=== PATIENT | male | born 1960 | race Caucasian/White ===

== ENCOUNTER → 2016-06-27 | Outpatient (CLI) | payer SELFPAY ==
[~2016-06-27] MED LIST: K-TAB20 PO; LASIX 20MG TABL20 MG PO
[2016-06-27 11:16] LABS: HEMATOCRIT 42.3 % (42.0-52.0); HEMOGLOBIN 14.1 g/dl (13.5-18.0); MEAN CELL VOLUME 88 fl (80.0-100.0); MEAN CORPUSCULAR HEMOGLOBIN 29 pg (27.0-31.0); MEAN CORPUSCULAR HGB CONC 33 g/dl (33.0-37.0); MEAN PLATELET VOLUME 11.8 fl (7.4-10.4); PLATELET COUNT 157 K/mm3 (130-400); RED BLOOD COUNT 4.81 M/mm3 (4.20-5.60); REDCELL DISTRIBUTION WIDTH-CV 13.5 % (11.5-14.5); WHITE BLOOD COUNT 4.3 K/mm3 (4.8-10.8)
[2016-06-27 11:24] LABS: ADJUSTED CALCIUM 8.9 mg/dL (8.4-10.2); ALBUMIN 4.3 gm/dL (3.5-5.0); BILIRUBIN,TOTAL 0.9 mg/dL (0.0-1.0); CALCIUM 9.1 mg/dL (8.4-10.2); CREATININE, serum 0.77 mg/dL (0.66-1.25); TOTAL PROTEIN 7.2 gm/dL (6.4-8.2)
== END ==
LOC: ZLAB.FHCC 10:24 → COL.LAB 10:24
DX: Z02.89 Encounter for other administrative examinations (principal)

== ENCOUNTER 2018-10-27 22:13 | Emergency (ER) | payer BC ==
[2018-10-27 22:19] VITALS: TEMP 98.2
[2018-10-27 23:16] LABS: HEMATOCRIT 44.3 % (42.0-52.0); HEMOGLOBIN 14.9 g/dl (13.5-18.0); MEAN CELL VOLUME 88 fl (80.0-100.0); MEAN CORPUSCULAR HEMOGLOBIN 30 pg (27.0-31.0); MEAN CORPUSCULAR HGB CONC 34 g/dl (33.0-37.0); MEAN PLATELET VOLUME 10.1 fl (7.4-10.4); PLATELET COUNT 238 K/mm3 (130-400); RED BLOOD COUNT 5.03 M/mm3 (4.20-5.60); REDCELL DISTRIBUTION WIDTH-CV 14.1 % (11.5-14.5)
[2018-10-27 23:38] LABS: ALANINE AMINOTRANSFERASE 37 U/L (21-72); ALBUMIN 5.2 gm/dL (3.5-5.0); ALKALINE PHOSPHATASE 70 U/L (50-136); ANION GAP 21 mmol/L (7-16); AST,SGOT 67 U/L (15-37); BILIRUBIN,TOTAL 1.1 mg/dL (0.0-1.0); BLOOD UREA NITROGEN 8 mg/dL (9-20); CALCIUM 9.1 mg/dL (8.4-10.2); CARBON DIOXIDE 17 mmol/L (22-30); CHLORIDE 100 mmol/L (98-107); CREATININE, serum 0.72 (0.66-1.25); GLUCOSE 183 mg/dL (74-106); MAGNESIUM 1.7 mg/dL (1.6-2.3); PHOSPHOROUS 3.1 mg/dL (2.5-4.5); POTASSIUM 4.4 mmol/L (3.4-5.0); SODIUM 138 mmol/L (137-145); TOTAL PROTEIN 8.9 gm/dL (6.4-8.2)
[2018-10-27 23:39] LABS: ACETAMINOPHEN < 10 ug/mL (10-30); ALCOHOL(ethanol),MEDICAL < 10 mg/dL; C-REACTIVE PROTEIN < 0.5 mg/dL (0.0-0.9); SALICYLATE < 1.0 mg/dL
[2018-10-27 23:48] LABS: COLLECTION METHOD CLEAN CATCH
[2018-10-27 23:49] LABS: BAND 7 % (0-10); LYMPHOCYTE 7 % (20.0-51.0); NEUTROPHILS 82 % (42.0-75.2); PLATELET ESTIMATE NORMAL (NORMAL)
[2018-10-27 23:53] LABS: TROPONIN-I < 0.012 ng/mL (0.000-0.035)
[2018-10-28 00:01] LABS: TRICYCLIC ANTIDEPRESS URINE NEGATIVE
[2018-10-28 00:05] LABS: MUCOUS Present /lpf; PH 5 (5-8); SQUAMOUS EPITHELIAL None Seen /hpf; URINE APPEARANCE Clear; URINE BACTERIA Rare /hpf; URINE BILIRUBIN Negative (NEGATIVE); URINE BLOOD 1+ (NEGATIVE); URINE COLOR Yellow; URINE GLUCOSE 1+ (NEGATIVE); URINE KETONE 2+ (NEGATIVE); URINE LEUKOCYTE ESTERASE Negative (NEGATIVE); URINE NITRATE Negative (NEGATIVE); URINE PROTEIN(semi-quant) 2+ (NEGATIVE); URINE RBC None Seen /hpf; URINE UROBILINOGEN Negative (NEGATIVE)
[2018-10-28 02:26] LABS: CALCIUM 8.1 mg/dL (8.4-10.2); CREATININE, serum 0.63 (0.66-1.25); POTASSIUM 4.1 mmol/L (3.4-5.0)
[2018-10-28] MEDS ORDERED: LIBRIUM 25M25 MG/CAP PO (06:54)
[2018-10-28 07:05] VITALS: BP 149/90; PULSE 88
== END 2018-10-28 07:05 | disposition home or self-care (01) ==
LOC: COL.ER 22:13
PROVIDERS: Emergency Medicine
DX: G47.00 Insomnia, unspecified (principal); F41.9 Anxiety disorder, unspecified; F19.939 Other psychoactive substance use, unspecified with withdrawal, unspecified
CPT/HCPCS: J2060; J2405; J3411; J7030

== ENCOUNTER 2018-12-01 00:40 | Emergency (ER) | payer BC ==
[~2018-12-01] VITALS: Ht 182.9 cm; Wt 90.5 kg
[~2018-12-01 00:40] MED LIST changes: +LIBRIUM 25M25 MG/CAP PO
[2018-12-01 00:52] VITALS: TEMP 98
[2018-12-01] MEDS ORDERED: LEXAPRO 10MG10 MG PO (00:56)
[2018-12-01 01:01] LABS: BASO % 0.1 % (0.0-2.0); EOS % 0.1 % (0-4.0); GRAN # 3.1 (1.4-6.5); GRAN % 43.5 % (42.2-75.2); HEMATOCRIT 48.4 % (42.0-52.0); HEMOGLOBIN 16.4 g/dl (13.5-18.0); LYMPH # 3.6 (1.2-3.4); LYMPH % 50.6 % (20.0-51.0); MEAN CELL VOLUME 85 fl (80.0-100.0); MEAN CORPUSCULAR HEMOGLOBIN 29 pg (27.0-31.0); MEAN CORPUSCULAR HGB CONC 34 g/dl (33.0-37.0); MONO # 0.4 (0.1-0.6); MONO % 5.4 % (1.7-9.3); PLATELET COUNT 249 K/mm3 (130-400); REDCELL DISTRIBUTION WIDTH-CV 12.8 % (11.5-14.5)
[2018-12-01 01:10] LABS: BILIRUBIN,TOTAL 0.4 mg/dL (0.0-1.0); CALCIUM 9.2 mg/dL (8.4-10.2); CREATININE, serum 0.82 (0.66-1.25); POTASSIUM 3.9 mmol/L (3.4-5.0); TOTAL PROTEIN 8.7 gm/dL (6.4-8.2)
[2018-12-01 02:26] LABS: COLLECTION METHOD CLEAN CATCH
[2018-12-01] MEDS ORDERED: ZOFRAN 4MG T4 MG/TAB PO (02:27)
[2018-12-01 02:33] LABS: MUCOUS Present /lpf; PH 5 (5-8); SQUAMOUS EPITHELIAL 0-2 /hpf; URINE APPEARANCE Hazy; URINE BACTERIA None Seen /hpf; URINE BILIRUBIN Negative (NEGATIVE); URINE BLOOD Negative (NEGATIVE); URINE COLOR Yellow; URINE GLUCOSE Negative (NEGATIVE); URINE KETONE Trace (NEGATIVE); URINE LEUKOCYTE ESTERASE Negative (NEGATIVE); URINE NITRATE Negative (NEGATIVE); URINE PROTEIN(semi-quant) 2+ (NEGATIVE); URINE RBC 0-2 /hpf; URINE UROBILINOGEN Negative (NEGATIVE); URINE WBC 0-2 /hpf
[2018-12-01 03:05] VITALS: BP 136/71; PULSE 97
== END 2018-12-01 03:07 | disposition home or self-care (01) ==
LOC: COL.ER 00:40
PROVIDERS: Emergency Medicine
DX: F10.129 Alcohol abuse with intoxication, unspecified (principal); R10.13 Epigastric pain; R11.2 Nausea with vomiting, unspecified; F32.9 Major depressive disorder, single episode, unspecified; Y90.7 Blood alcohol level of 200-239 mg/100 ml
CPT/HCPCS: J2270; J2405; J3411; J3475; J7030

== ENCOUNTER 2019-09-12 09:56 | Emergency (ER) | payer BC ==
[~2019-09-12] VITALS: Ht 185.4 cm; Wt 100.0 kg
[~2019-09-12 09:56] MED LIST changes: +LEXAPRO 10MG10 MG PO; +ZOFRAN 4MG T4 MG/TAB PO
[2019-09-12 10:04] VITALS: TEMP 98.2
[2019-09-12 10:41] LABS: BASO % 0.4 % (0.0-2.0); EOS % 0.3 % (0-4.0); GRAN # 4.3 (1.4-6.5); GRAN % 59.4 % (42.2-75.2); HEMATOCRIT 44.5 % (42.0-52.0); HEMOGLOBIN 14.9 g/dl (13.5-18.0); LYMPH # 2.4 (1.2-3.4); MEAN CELL VOLUME 89 fl (80.0-100.0); MEAN CORPUSCULAR HEMOGLOBIN 30 pg (27.0-31.0); MEAN CORPUSCULAR HGB CONC 34 g/dl (33.0-37.0); MEAN PLATELET VOLUME 10.6 fl (7.4-10.4); MONO # 0.5 (0.1-0.6); MONO % 6.6 % (1.7-9.3); PLATELET COUNT 206 K/mm3 (130-400); RED BLOOD COUNT 5.02 M/mm3 (4.20-5.60); REDCELL DISTRIBUTION WIDTH-CV 12.6 % (11.5-14.5)
[2019-09-12 11:00] LABS: TROPONIN-I 0.015 ng/mL (0.000-0.035)
[2019-09-12 11:18] LABS: ALANINE AMINOTRANSFERASE 37 U/L (4-49); ALBUMIN 4.9 gm/dL (3.5-5.0); ALKALINE PHOSPHATASE 84 U/L (50-136); ANION GAP 16 mmol/L (7-16); AST,SGOT 53 U/L (15-37); BILIRUBIN,TOTAL 0.8 mg/dL (0.0-1.0); BLOOD UREA NITROGEN 9 mg/dL (9-20); CALCIUM 9.4 mg/dL (8.4-10.2); CARBON DIOXIDE 18 mmol/L (22-30); CHLORIDE 103 mmol/L (98-107); CREATININE, serum 0.74 (0.66-1.25); GLUCOSE 93 mg/dL (74-106); LIPASE 72 U/L (23-300); POTASSIUM 4.2 mmol/L (3.4-5.0); SODIUM 138 mmol/L (137-145); TOTAL PROTEIN 8.8 gm/dL (6.4-8.2)
[2019-09-12 11:23] LABS: C-REACTIVE PROTEIN < 0.5 mg/dL (0.0-0.9)
[2019-09-12] MEDS ORDERED: TOPROL XL 50MG50 MG PO (13:42)
[2019-09-12 14:23] VITALS: BP 156/89; PULSE 75
== END 2019-09-12 14:25 | disposition home or self-care (01) ==
LOC: COL.ER 09:56
PROVIDERS: Physician Assistant
DX: R03.0 Elevated blood-pressure reading, without diagnosis of hypertension (principal); K29.20 Alcoholic gastritis without bleeding; F32.9 Major depressive disorder, single episode, unspecified
CPT/HCPCS: C9113; J2060; J7030

== ENCOUNTER 2020-05-26 22:00 | Emergency (ER) | payer SELFPAY ==
[~2020-05-26] VITALS: Ht 182.9 cm; Wt 90.9 kg
[~2020-05-26 22:00] MED LIST changes: +TOPROL XL 50MG50 MG PO
[2020-05-26 22:24] LABS: COLLECTION METHOD CLEAN CATCH
[2020-05-26 22:27] LABS: BASO % 0.4 % (0.0-2.0); HEMATOCRIT 42.4 % (42.0-52.0); HEMOGLOBIN 13.8 g/dl (13.5-18.0); LYMPH # 0.5 (1.2-3.4); LYMPH % 10.2 % (20.0-51.0); MEAN CELL VOLUME 93 fl (80.0-100.0); MEAN CORPUSCULAR HEMOGLOBIN 30 pg (27.0-31.0); MEAN CORPUSCULAR HGB CONC 33 g/dl (33.0-37.0); MONO # 0.3 (0.1-0.6); MONO % 5.2 % (1.7-9.3); PLATELET COUNT 199 K/mm3 (130-400); RED BLOOD COUNT 4.54 M/mm3 (4.20-5.60); REDCELL DISTRIBUTION WIDTH-CV 13.6 % (11.5-14.5)
[2020-05-26 22:35] LABS: MUCOUS Present /lpf; PH 5 (5-8); SQUAMOUS EPITHELIAL None Seen /hpf; URINE APPEARANCE Clear; URINE BACTERIA None Seen /hpf; URINE BILIRUBIN Negative (NEGATIVE); URINE BLOOD Negative (NEGATIVE); URINE COLOR Yellow; URINE GLUCOSE Negative (NEGATIVE); URINE KETONE 2+ (NEGATIVE); URINE LEUKOCYTE ESTERASE Negative (NEGATIVE); URINE NITRATE Negative (NEGATIVE); URINE PROTEIN(semi-quant) 2+ (NEGATIVE); URINE RBC 0-2 /hpf; URINE UROBILINOGEN Negative (NEGATIVE)
[2020-05-26 22:37] LABS: ALBUMIN 5.5 gm/dL (3.5-5.0); ALCOHOL(ethanol),MEDICAL 15 mg/dL; ALKALINE PHOSPHATASE 94 U/L (50-136); ANION GAP 30 mmol/L (7-16); AST,SGOT 119 U/L (15-37); BILIRUBIN,TOTAL 1.3 mg/dL (0.0-1.0); BLOOD UREA NITROGEN 5 mg/dL (9-20); CHLORIDE 97 mmol/L (98-107); CREATININE, serum 0.65 (0.66-1.25); GLUCOSE 138 mg/dL (74-106); LIPASE 103 U/L (23-300); POTASSIUM 4.2 mmol/L (3.4-5.0); SODIUM 136 mmol/L (137-145)
[2020-05-26 22:38] LABS: CARBON DIOXIDE 9 mmol/L (22-30); TRICYCLIC ANTIDEPRESS URINE NEGATIVE
[2020-05-26 22:43] LABS: ALANINE AMINOTRANSFERASE 75 U/L (4-49)
[2020-05-26 22:50] LABS: TROPONIN-I < 0.012 ng/mL (0.000-0.035)
[2020-05-26 23:07] LABS: PROTHROMBIN TIME 11.3 SECONDS (9.7-12.8)
[2020-05-26 23:10] LABS: PARTIAL THROMBOPLASTIN TIME 29.6 SECONDS (26.0-37.0)
[2020-05-27 01:07] LABS: CREATININE, serum 0.59 (0.66-1.25); POTASSIUM 4.3 mmol/L (3.4-5.0)
[2020-05-27 02:15] VITALS: BP 140/84; PULSE 109; TEMP 98.2
[2020-06-23] MEDS ORDERED: LEXAPRO 10MG10 MG PO (00:25)
[2020-06-23] MEDS ORDERED: PRINIVIL10 MG PO (00:26)
[2020-06-27] MEDS ORDERED: AMOXICILLIN 8751 TAB PO (08:14)
[2020-06-27] MEDS ORDERED: ZESTRIL 20MG TA20 MG PO (08:15)
[2020-06-27] MEDS ORDERED: DUO-KAPS1 CAP PO (08:15)
[2020-06-27] MEDS ORDERED: THIAMINE 1100 MG/TAB PO (08:15)
[2020-06-27] MEDS ORDERED: FOLIC ACID 11 MG/TA1 PO (08:15)
[2020-06-27] MEDS ORDERED: PROBIOTIC ACID1 EAC3 PO (09:10)
== END 2020-05-27 02:15 | disposition short-term general hospital (02) ==
LOC: COL.ER 22:00
PROVIDERS: Emergency Medicine
DX: F10.239 Alcohol dependence with withdrawal, unspecified (principal); E87.2 Acidosis; K85.90 Acute pancreatitis without necrosis or infection, unspecified; I10 Essential (primary) hypertension; Z20.822 Contact with and (suspected) exposure to COVID-19
CPT/HCPCS: J0456; J2060; J2250; J2543; J3360; J7030; J7042; J7050; Q9967

== ENCOUNTER 2020-07-17 21:10 | Emergency (ER) | payer SELFPAY ==
[~2020-07-17] VITALS: Ht 190.5 cm; Wt 90.9 kg
[~2020-07-17 21:10] MED LIST changes: +AMOXICILLIN 8751 TAB PO; +DUO-KAPS1 CAP PO; +FOLIC ACID 11 MG/TA1 PO; +PRINIVIL10 MG PO; +PROBIOTIC ACID1 EAC3 PO; +THIAMINE 1100 MG/TAB PO; +ZESTRIL 20MG TA20 MG PO
[2020-07-17 21:47] LABS: BASO % 0.2 % (0.0-2.0); GRAN # 4.1 (1.4-6.5); GRAN % 81.6 % (42.2-75.2); HEMATOCRIT 43.5 % (42.0-52.0); HEMOGLOBIN 14.5 g/dl (13.5-18.0); LYMPH # 0.6 (1.2-3.4); LYMPH % 12.6 % (20.0-51.0); MEAN CELL VOLUME 90 fl (80.0-100.0); MEAN CORPUSCULAR HEMOGLOBIN 30 pg (27.0-31.0); MEAN CORPUSCULAR HGB CONC 33 g/dl (33.0-37.0); MEAN PLATELET VOLUME 10.3 fl (7.4-10.4); MONO # 0.3 (0.1-0.6); MONO % 5.4 % (1.7-9.3); PLATELET COUNT 215 K/mm3 (130-400); RED BLOOD COUNT 4.81 M/mm3 (4.20-5.60); REDCELL DISTRIBUTION WIDTH-CV 12.7 % (11.5-14.5)
[2020-07-17 21:55] LABS: INR 1.1 (0.8-3.0); PROTHROMBIN TIME 12.1 SECONDS (9.7-12.8)
[2020-07-17 21:57] LABS: PARTIAL THROMBOPLASTIN TIME 28.2 SECONDS (26.0-37.0)
[2020-07-17 22:01] LABS: COLLECTION METHOD CLEAN CATCH
[2020-07-17 22:01] LABS: ALBUMIN 5.3 gm/dL (3.5-5.0); ALKALINE PHOSPHATASE 70 U/L (50-136); ANION GAP 25 mmol/L (7-16); AST,SGOT 66 U/L (15-37); BILIRUBIN,TOTAL 1.6 mg/dL (0.0-1.0); BLOOD UREA NITROGEN 9 mg/dL (9-20); CALCIUM 9.3 mg/dL (8.4-10.2); CHLORIDE 98 mmol/L (98-107); CREATINE KINASE 133 U/L (55-170); CREATININE, serum 0.65 (0.66-1.25); GLUCOSE 153 mg/dL (74-106); LIPASE 109 U/L (23-300); POTASSIUM 4.8 mmol/L (3.4-5.0); SODIUM 136 mmol/L (137-145); TOTAL PROTEIN 9.2 gm/dL (6.4-8.2)
[2020-07-17 22:05] LABS: ALCOHOL(ethanol),MEDICAL < 10 mg/dL; CARBON DIOXIDE 13 mmol/L (22-30)
[2020-07-17 22:07] LABS: ALANINE AMINOTRANSFERASE 43 U/L (4-49)
[2020-07-17 22:11] LABS: MUCOUS Present /lpf; PH 5 (5-8); SQUAMOUS EPITHELIAL None Seen /hpf; URINE APPEARANCE Clear; URINE BACTERIA None Seen /hpf; URINE BILIRUBIN Negative (NEGATIVE); URINE BLOOD Negative (NEGATIVE); URINE COLOR Yellow; URINE GLUCOSE Negative (NEGATIVE); URINE KETONE 2+ (NEGATIVE); URINE LEUKOCYTE ESTERASE Negative (NEGATIVE); URINE NITRATE Negative (NEGATIVE); URINE PROTEIN(semi-quant) 2+ (NEGATIVE); URINE RBC 0-2 /hpf; URINE UROBILINOGEN Negative (NEGATIVE); URINE WBC 0-2 /hpf
[2020-07-17 22:13] LABS: TROPONIN-I < 0.012 ng/mL (0.000-0.035)
[2020-07-17 22:22] LABS: TRICYCLIC ANTIDEPRESS URINE NEGATIVE
[2020-07-17 22:31] VITALS: TEMP 98.2
[2020-07-18 01:57] LABS: CALCIUM 7.6 mg/dL (8.4-10.2); CREATININE, serum 0.54 (0.66-1.25); POTASSIUM 3.8 mmol/L (3.4-5.0)
[2020-07-18 02:40] VITALS: BP 118/89; PULSE 94
[2020-07-18] MEDS ORDERED: VITAMIN B1 50 MG PO (03:11)
[2020-07-18] MEDS ORDERED: FOLIC ACID 11 MG/TA1 PO (03:11)
--- NOTE | 2020-07-18 09:59 | NUR ---
[employer] received consult from the ED for patient who discharge home. Per ED notes, patient needs assistance with alcohol resources. Patient was also hospitalized recently from 06/22/20-06/27/20. SW attempted to contact the number in patient's chart but the number was disconnected. FATIMAH then contacted patient's primary care office to obtain more information. FATIMAH spoke with Dr. Sesay's RN, Marta who provided an additional phone number for patient (ph#[phone]). Marta reports that patient consistently does not show up for appointments and has actually never been seen in their office. Marta advised that Dr. Sesay has done a home visit for patient. Marta advised that patient was scheduled a hospital follow up but did not show up. Marta reviewed Dr. Sesay's most recent note for patient (07/02/20) which advised that patient needed follow up with [facility]. FATIMAH attempted to contact the phone number provided by Marta, but the number was not accepting calls. FATIMAH then consulted Laura, Financial Counselor as patient is self pay. FATIMAH made report to Adult Protective Services (intake# [id number]).
== END 2020-07-18 03:00 | disposition home or self-care (01) ==
LOC: COL.ER 21:10
PROVIDERS: Emergency Medicine
DX: E87.2 Acidosis (principal); F10.239 Alcohol dependence with withdrawal, unspecified; E86.0 Dehydration
CPT/HCPCS: J0696; J2060; J2405; J7030; J7120

== ENCOUNTER 2020-10-17 07:25 | Emergency (ER) | payer SELFPAY ==
[~2020-10-17] VITALS: Ht 182.9 cm; Wt 95.5 kg
[~2020-10-17 07:25] MED LIST changes: +VITAMIN B1 50 MG PO
[2020-10-17 07:36] VITALS: TEMP 98.3
[2020-10-17 08:05] LABS: COLLECTION METHOD CLEAN CATCH
[2020-10-17 08:08] LABS: BASO % 0.2 % (0.0-2.0); EOS # 0.1 (0.0-0.7); EOS % 1.8 % (0-4.0); GRAN # 2.8 (1.4-6.5); GRAN % 55.9 % (42.2-75.2); HEMOGLOBIN 12.7 g/dl (13.5-18.0); LYMPH # 1.6 (1.2-3.4); LYMPH % 32.1 % (20.0-51.0); MEAN CELL VOLUME 87 fl (80.0-100.0); MEAN CORPUSCULAR HEMOGLOBIN 28 pg (27.0-31.0); MEAN CORPUSCULAR HGB CONC 33 g/dl (33.0-37.0); MEAN PLATELET VOLUME 10.8 fl (7.4-10.4); MONO # 0.5 (0.1-0.6); MONO % 9.8 % (1.7-9.3); PLATELET COUNT 192 K/mm3 (130-400); RED BLOOD COUNT 4.47 M/mm3 (4.20-5.60); REDCELL DISTRIBUTION WIDTH-CV 12.9 % (11.5-14.5)
[2020-10-17 08:14] LABS: MUCOUS Present /lpf; PH 5 (5-8); SQUAMOUS EPITHELIAL 0-2 /hpf; URINE APPEARANCE Clear; URINE BACTERIA None Seen /hpf; URINE BILIRUBIN Negative (NEGATIVE); URINE BLOOD Negative (NEGATIVE); URINE COLOR Yellow; URINE GLUCOSE Negative (NEGATIVE); URINE KETONE Negative (NEGATIVE); URINE LEUKOCYTE ESTERASE Negative (NEGATIVE); URINE NITRATE Negative (NEGATIVE); URINE PROTEIN(semi-quant) Negative (NEGATIVE); URINE RBC 0-2 /hpf
[2020-10-17 08:20] LABS: ALANINE AMINOTRANSFERASE 24 U/L (4-49); ALBUMIN 4.1 gm/dL (3.5-5.0); ALKALINE PHOSPHATASE 53 U/L (50-136); ANION GAP 7 mmol/L (7-16); AST,SGOT 34 U/L (15-37); BILIRUBIN,TOTAL 0.2 mg/dL (0.0-1.0); BLOOD UREA NITROGEN 12 mg/dL (9-20); CALCIUM 8.9 mg/dL (8.4-10.2); CARBON DIOXIDE 28 mmol/L (22-30); CHLORIDE 101 mmol/L (98-107); CREATININE, serum 0.56 (0.66-1.25); GLUCOSE 99 mg/dL (74-106); SODIUM 136 mmol/L (137-145); TOTAL PROTEIN 7.4 gm/dL (6.4-8.2)
[2020-10-17 08:33] LABS: TROPONIN-I < 0.012 ng/mL (0.000-0.035)
[2020-10-17 08:45] VITALS: BP 150/87; PULSE 78
[2020-10-17 08:55] LABS: TSH w REFLEX 1.939 uIU/mL (0.350-4.940)
== END 2020-10-17 08:45 | disposition home or self-care (01) ==
LOC: COL.ER 07:25
PROVIDERS: Emergency Medicine
DX: M79.89 Other specified soft tissue disorders (principal); I10 Essential (primary) hypertension; F32.9 Major depressive disorder, single episode, unspecified; Z79.899 Other long term (current) drug therapy

== ENCOUNTER 2021-06-17 14:23 | Emergency (ER) | payer OTHER ==
[~2021-06-17] VITALS: Ht 182.9 cm; Wt 95.5 kg
[2021-06-17 16:17] VITALS: BP 131/64; PULSE 79; TEMP 98.1
== END 2021-06-17 16:18 | disposition home or self-care (01) ==
LOC: COL.ER 14:23
DX: L91.0 Hypertrophic scar (principal)

== ENCOUNTER 2021-08-05 03:54 | Emergency (ER) | payer OTHER ==
[~2021-08-05] VITALS: Ht 182.9 cm; Wt 90.9 kg
[2021-08-05 04:00] VITALS: BP 154/93; TEMP 98.3
[2021-08-05 05:07] VITALS: PULSE 74
== END 2021-08-05 05:07 | disposition home or self-care (01) ==
LOC: COL.ER 03:54
DX: R05.9 Cough, unspecified (principal)

== ENCOUNTER 2021-08-05 17:05 | Emergency (ER) | payer OTHER ==
[~2021-08-05] VITALS: Ht 182.9 cm; Wt 90.9 kg
[2021-08-05 17:35] VITALS: BP 107/69; TEMP 97.6
[2021-08-05 20:40] VITALS: PULSE 71
== END 2021-08-05 20:44 | disposition home or self-care (01) ==
LOC: COL.ER 17:05
DX: S82.891A Other fracture of right lower leg, initial encounter for closed fracture (principal); S51.811A Laceration without foreign body of right forearm, initial encounter; S20.91XA Abrasion of unspecified parts of thorax, initial encounter; W01.198A Fall on same level from slipping, tripping and stumbling with subsequent striking against other object, initial encounter; Y93.01 Activity, walking, marching and hiking; Y92.828 Other wilderness area as the place of occurrence of the external cause
CPT/HCPCS: J3010